=== PATIENT | female | born 1975 | race Caucasian/White ===

== ENCOUNTER 2018-04-13 21:17 | Emergency (ER) | payer MEDICAID, OTHER ==
[~2018-04-13] VITALS: Wt 56.2 kg
[~2018-04-13 21:17] MED LIST: LORA1TAB PO; RANI150T35 PO
[2018-04-13] MEDS ORDERED: ACETAMINOPHEN 500 MG TAB PO STA (22:14)
[2018-04-13] MEDS ORDERED: ONDANSETRON (ODT) 4 MG TAB ODT STA (22:14)
[2018-04-13] MEDS ORDERED: HYDROCODONE/APAP (5/325) TAB PO ONE (22:30)
[2018-04-14] MEDS ORDERED: IBUP-1542 PO (00:31)
[2018-04-14] MEDS ORDERED: ONDA8TAB14 PO (00:31)
[2018-04-14 00:40] VITALS: BP 143/79; PULSE 84; RESP 15
--- NOTE | 2018-04-14 00:48 | ERD ---
ER Documentation Chief Complaint Chief Complaint AP, NAUSEA X'S 1 DAY HPI This is a 42-year-old female without any stated medical problems presents to the emergency department complaining of generalized lower abdominal pain 10 out of 10, nausea and one episode of diarrhea for the past 2 days. Patient denies fevers, vomiting, hematemesis or melena. States that last meal was at 5:30 PM. States she does have a history of with no other medical problems. Patient states that she has not taken any medications. Last menstrual period January 29. Denies dysuria ROS All systems reviewed and are negative except as per history of present illness. Medications Home Meds Active Scripts Ondansetron (Ondansetron Odt) 8 Mg Tab.rapdis, 8 MG PO Q6H PRN for NAUSEA AND/OR VOMITING, #10 TAB Prov:SIVAKUMAR FRANCOIS PA-C 04/14/18 Ibuprofen* (Motrin*) 600 Mg Tab, 600 MG PO Q6H PRN for PAIN AND OR ELEVATED TEMP, #30 TAB Prov:SIVAKUMAR FRANCOIS PA-C 04/14/18 Ranitidine Hcl* (Zantac*) 150 Mg Tablet, 150 MG PO BID PRN for GASTROINTESTINAL UPSET, #30 TAB Prov:AURELIANO KRUEGER 07/01/15 Lorazepam* (Lorazepam*) 1 Mg Tablet, 1 MG PO Q8H PRN for ANXIETY, #14 TAB Prov:AURELIANO KRUEGER 07/01/15 Allergies Allergies: Coded Allergies: No Known Allergy (Unverified , 07/01/15) PMhx/Soc Medical and Surgical Hx: pt denies Medical Hx History of Surgery: Yes (c section) Anesthesia Reaction: No Hx Miscellaneous Medical Probl: No Hx Alcohol Use: No Hx Substance Use: No Hx Tobacco Use: No Physical Exam Vitals Vital Signs Date Temp Pulse Resp B/P (MAP) Pulse Ox O2 O2 Flow FiO2 Time Delivery Rate 04/13/18 99.5 92 18 142/85 99 21:26 (104) Physical Exam General: well-developed/well-nourished, in no apparent distress, non-toxic appearing HENT: NC/AT, bilateral tympanic membrane is normal with good cone of light, nares patent, oropharynx clear without exudates Eyes: Conjunctiva normal, PERRLA, EOMI Neck: Supple, no lymphadenopathy Pulm: CTA bilaterally, no rales, rhonchi, or wheezing heard CV: Normal S1S2, RRR, good capillary refill GI: Soft, non-distended, normal bowel sounds, tender to palpation in the right lower quadrant negative McBurney's negative Marin's : no penile discharge or lesions, no testicular masses or lesions felt Back: No midline tenderness, no masses, No CVAT Ext: No clubbing, cyanosis, or edema Neuro: Alert and Orientated, CN II-IIX intact, gait normal Skin: Intact, normal turgor Psych: Normal mood and mentation Result Diagram: 04/13/18222704/13/182227 Results 24 hrs Laboratory Tests Test 04/13/18 22:28 04/13/18 22:38 White Blood Count 7.6 10^3/ul Red Blood Count 4.14 10^6/ul Hemoglobin 12.8 g/dl Hematocrit 38.9 % Mean Corpuscular Volume 94.0 fl Mean Corpuscular Hemoglobin 30.9 pg Mean Corpuscular Hemoglobin Concent 32.9 g/dl Red Cell Distribution Width 12.9 % Platelet Count 232 10^3/UL Mean Platelet Volume 10.2 fl Immature Granulocytes % 0.300 % Neutrophils % 65.2 % Lymphocytes % 23.5 % Monocytes % 10.2 % Eosinophils % 0.5 % Basophils % 0.3 % Nucleated Red Blood Cells % 0.0 /100WBC Immature Granulocytes # 0.020 10^3/ul Neutrophils # 5.0 10^3/ul Lymphocytes # 1.8 10^3/ul Monocytes # 0.8 10^3/ul Eosinophils # 0.0 10^3/ul Basophils # 0.0 10^3/ul Nucleated Red Blood Cells # 0.0 10^3/ul Urine Color STRAW Urine Clarity CLEAR Urine pH 7.0 Urine Specific [place] 1.003 Urine Ketones NEGATIVE mg/dL Urine Nitrite NEGATIVE mg/dL Urine Bilirubin NEGATIVE mg/dL Urine Urobilinogen NEGATIVE mg/dL Urine Leukocyte Esterase NEGATIVE Leticia/ul Urine Microscopic RBC 0 /HPF Urine Microscopic WBC 1 /HPF Urine Squamous Epithelial Cells FEW /HPF Urine Hemoglobin 2+ mg/dL Urine Glucose NEGATIVE mg/dL Urine Total Protein NEGATIVE mg/dl Sodium Level 141 mmol/L Potassium Level 3.9 mmol/L Chloride Level 105 mmol/L Carbon Dioxide Level 28 mmol/L Anion Gap 8 Blood Urea Nitrogen 7 mg/dl Creatinine 0.66 mg/dl Est Glomerular Filtrat Rate mL/min > 60 mL/min Glucose Level 96 mg/dl Calcium Level 8.9 mg/dl Total Bilirubin 0.3 mg/dl Direct Bilirubin 0.00 mg/dl Indirect Bilirubin 0.3 mg/dl Aspartate Amino Transf (AST/SGOT) 28 IU/L Alanine Aminotransferase (ALT/SGPT) 27 IU/L Alkaline Phosphatase 96 IU/L Total Protein 7.7 g/dl Albumin 4.2 g/dl Globulin 3.50 g/dl Albumin/Globulin Ratio 1.20 Lipase 77 U/L POC Beta HCG, Qualitative NEGATIVE Current Medications Medications Dose Sig/Rosy Start Time Status Last (Trade) Ordered Route PRN Stop Time Admin Dose Reason Admin 500 mg ONCE STAT 04/13/18 DC 04/13/18 Acetaminophen PO 22:14 04/13/18 22:29 (Tylenol 22:16 Tab) 1 tab ONCE ONCE 04/13/18 DC 04/13/18 Acetaminophen PO 22:30 04/13/18 22:30 / 22:31 Hydrocodone Bitart ([place] (5/325)) Ondansetron 8 mg ONCE STAT 04/13/18 DC 04/13/18 HCl (Zofran ODT 22:14 04/13/18 22:29 Odt) 22:16 Procedures/MDM 42-year-old female presents with right lower quadrant abdominal pain, nausea for the past day. Patient was found to have equivocal mild jejunal ileus on CT without any evidence of any emergent or surgical pathology. No signs of appendi citis on CT. Lab work was obtained, she had no leukocytosis. No signs of infection on urinalysis. Patient was given [place] and Zofran she did have some improvement in her symptoms. Patient is stable and well-appearing to be discharged home to follow-up with her primary care physician and return to emergency department for any worsening symptoms or not improving as expected. She was given prescription for Zofran and Motrin. CT AP AND PELVIS WITHOUT CONTRAST 1. The appendix is normal. 2. Equivocal mild jejunal ileus without evidence of bowel obstruction, enteritis or acute intra-abdominal abnormality.. Departure Diagnosis: Primary Impression: Ileus Additional Impression: Abdominal pain Condition: Stable Patient Instructions: Abdominal Pain, Ileus, Nausea and Vomiting-Adult Referrals: NO PRIMARY,CARE PHYSICIAN (PCP) Additional Instructions: Visite a kaur mdalonzo mayo para un EXAMEN.Regrese a estas instalaciones si no se mejora yolie esperbamos o yolie le dijimos. Williams toda la medicina zoey y yolie se le indic. Regrese a estas instalaciones si no se mejora yolie esperbamos o yolie le dijimos. SIVAKUMAR FRANCOIS PA-C Apr 14, 2018 00:48
== END 2018-04-14 00:52 | disposition home or self-care (01) ==
LOC: FTE 21:17
DX: K56.7 Ileus, unspecified (principal)
CPT/HCPCS: 74176; 80053; 81001; 81025; 83690; 85025; Z7610